=== PATIENT | male | born 1970 | race Caucasian/White ===

== ENCOUNTER 2021-01-19 09:32 | Emergency (ER) | payer SELFPAY ==
[~2021-01-19] VITALS: Ht 167.6 cm; Wt 103.0 kg
[2021-01-19 09:41] VITALS: BP 157/100
--- NOTE | 2021-01-19 10:18 | NUR ---
dr. gonzalez bedside evaluating pt
--- NOTE | 2021-01-19 10:42 | NUR ---
50 Y/O MALE C/O RIGHT RIB PAIN 12/30 DESCRIBES SHARP NON-RADIATING X3DAYS. PT STATES "HE WAS HAVING AN ALLERGIC REACTION TUESDAY AND KEPT SNEEZING WHEN HE HEARD A POP AND STARTED TO FEEL THE PAIN." PT STATES SOB WHEN TAKING DEEP BREATH, SPO2 96% ON RA. DENIES TRAUMA/INJURY, DENIES N/V, DENIES FEVER/CHILLS. PMH: [place], [place] (3YRS), 3 STENTS, HLD RX: INSULIN, ASA NKA
--- NOTE | 2021-01-19 10:42 | NUR ---
XRAY BEDSIDE WITH PT
[2021-01-19] MEDS ORDERED: ACET-8386 PO (11:02)
[2021-01-19] MEDS ORDERED: NAPR-1704 PO (11:02)
[2021-01-19 11:10] VITALS: BP 157/100
--- NOTE | 2021-01-19 11:10 | NUR ---
Patient discharged with v/s stable. Written and verbal after care instructions ABOUT CHEST WALL PAIN given and explained. Patient alert, oriented and verbalized understanding of instructions. Ambulatory with steady gait. All questions addressed prior to discharge. ID band removed. Patient advised to follow up with PMD. Rx of NAPROXEN AND HYDROCODONE/ACETAMINOPHEN given. Patient educated on indication of medication including possible reaction and side effects. Opportunity to ask questions provided and answered.
== END 2021-01-19 11:11 | disposition home or self-care (01) ==
LOC: MED 09:32
DX: R07.89 Other chest pain (principal); E11.9 Type 2 diabetes mellitus without complications; I11.9 Hypertensive heart disease without heart failure
CPT/HCPCS: 71045; 99283; Q0092

== ENCOUNTER 2023-06-16 17:24 | Inpatient (IN) | payer SELFPAY ==
[~2023-06-16] VITALS: Ht 167.6 cm; Wt 104.3 kg
[~2023-06-16 17:24] MED LIST: ACET-8905 PO; NAPR-1704 PO
[2023-06-16 17:34] VITALS: BP 153/80; PULSE 82; RESP 18; TEMP 97.7; O2SAT 98
[2023-06-16] MEDS ORDERED: ASPIRIN 81 MG TAB.CHEW PO ONE ×2 (17:45→18:35)
[2023-06-16] MEDS ORDERED: MORPHINE SULFATE 4 MG/ML SYR IVP ONE (18:00)
[2023-06-16] MEDS ORDERED: ONDANSETRON 4 MG/2 ML VIAL IVP ONE (18:00)
[2023-06-16 18:06] LABS: BASOPHILS # (AUTO) 0.1 K/uL (0.00-0.22); BASOPHILS % (AUTO) 0.7 % (0.0-2.0); EOSINOPHILS # (AUTO) 0.2 K/uL (0-0.4); EOSINOPHILS % (AUTO) 2.3 % (0.0-4.0); HEMATOCRIT 47.5 % (36-52); HEMOGLOBIN 16.9 g/dL (12.0-18.0); LYMPHOCYTES # (AUTO) 5.4 K/uL (2.0-11.5); MEAN CORPUSCULAR HEMOGLOBIN 31 pg (27-31); MEAN CORPUSCULAR HGB CONC 36 g/dL (33-37); MEAN CORPUSCULAR VOLUME 87.9 fL (80-94); MONOCYTES # (AUTO) 0.7 K/uL (0.8-1.0); MONOCYTES % (AUTO) 6.6 % (1.7-9.3); NEUTROPHILS % (AUTO) 38.4 % (42.2-75.2); PLATELET COUNT (AUTO) 221 K/uL (140-450); RED CELL DISTRIBUTION WIDTH 13.6 % (11.6-13.7); WHITE BLOOD COUNT (AUTO) 10.4 K/uL (4.8-10.8)
[2023-06-16 18:12] VITALS: O2SAT 99
[2023-06-16 18:23] LABS: ANION GAP 11.5 (8-16); CALCIUM 8.9 mg/dL (8.5-10.1); CARBON DIOXIDE 27.1 mmol/L (21-32); POTASSIUM 3.6 mmol/L (3.5-5.1)
[2023-06-16 18:26] LABS: INR 0.91 (0.8-1.2); PARTIAL THROMBOPLASTIN TIME 24.1 secs (22-35.6); PROTHROMBIN TIME 9.6 secs (10.8-13.4)
[2023-06-16 20:21] VITALS: O2SAT 99
[2023-06-16] MEDS ORDERED: ZOLPIDEM 5 MG TAB PO PRN (20:30)
[2023-06-16] MEDS ORDERED: LORazepam 1 MG TAB PO PRN (20:30)
[2023-06-16] MEDS ORDERED: NITROGLYCERIN 0.4 MG TAB SL PRN (20:30)
[2023-06-16] MEDS ORDERED: NACL 0.9% 1,000 ML IV SCH (20:30)
[2023-06-16] MEDS ORDERED: ATOR40TA PO (21:13)
[2023-06-16] MEDS ORDERED: METF-346 PO (21:13)
[2023-06-16] MEDS ORDERED: BENA10TA81 PO (21:13)
[2023-06-16] MEDS ORDERED: GLIP5TER PO (21:13)
[2023-06-16] MEDS ORDERED: INSU100S22 SUBQ (21:13)
[2023-06-16] MEDS ORDERED: METO25TA PO (21:13)
[2023-06-16] MEDS ORDERED: FENO145T PO (21:13)
[2023-06-16] MEDS ORDERED: GEMF600T5 PO (21:13)
[2023-06-16] MEDS ORDERED: ASPI-1822 PO (21:13)
[2023-06-16] MEDS ORDERED: ICOS1SGL PO (21:13)
[2023-06-16] MEDS ORDERED: CLOP75TA55 PO (21:13)
[2023-06-16 21:19] LABS: CHOL/HDL RATIO 8.6 (1-4.5); CHOLESTEROL 325 mg/dL (<200); HDL CHOLESTEROL 38 mg/dL (40-60)
[2023-06-16] MEDS: METOPROLOL 25 MG TAB PO SCH (21:26)
[2023-06-16 21:41] LABS: TRIGLYCERIDES 1758 mg/dL (30-150)
[2023-06-16 21:49] VITALS: PULSE 87; RESP 18; O2SAT 97
[2023-06-16] MEDS ORDERED: hydrALAZINE 20 MG/ML VIAL IVP PRN (23:15)
[2023-06-16] MEDS ORDERED: DEXTROSE 50% 50 ML SYR IVP PRN (23:35)
[2023-06-16] MEDS ORDERED: HEPARIN PER PHARMACY MC PRN (23:35)
[2023-06-16] MEDS: ONDANSETRON 4 MG/2 ML VIAL IVP PRN (23:53)
[2023-06-16] MEDS: MORPHINE SULFATE 2 MG/ML SYR IVP PRN (23:53)
[2023-06-17] VITALS (10 sets, daily range): BP systolic 117–144; BP diastolic 65–95; PULSE 76–106; RESP 18–20; TEMP 97.3–98.4; O2SAT 94–97
[2023-06-17] MEDS: hePARIN / DEXT 5% PREMIX 250 ML IV PRN ×4 (01:08→23:05)
[2023-06-17] MEDS: MORPHINE SULFATE 2 MG/ML SYR IVP PRN (05:55)
[2023-06-17] MEDS: ONDANSETRON 4 MG/2 ML VIAL IVP PRN (05:56)
[2023-06-17] MEDS: BLOOD GLUCOSE MONITORING 1 DEV DEV FS SCH ×4 (06:36→20:46)
[2023-06-17] MEDS: INSULIN LISPRO SLIDING SCALE 100 UNITS/ML VIAL SUBQ PRN ×4 (06:40→20:51)
[2023-06-17] MEDS: DOCUSATE SODIUM 100 MG GELCAP PO SCH (08:21)
[2023-06-17] MEDS: METOPROLOL 25 MG TAB PO SCH ×2 (08:22→20:47)
[2023-06-17] MEDS: ASPIRIN 81 MG TAB.CHEW PO SCH (08:22)
[2023-06-17] MEDS ORDERED: LOSARTAN 25 MG TAB PO SCH (09:00)
[2023-06-17] MEDS: ATORVASTATIN 20 MG TAB PO SCH (09:13)
[2023-06-17] MEDS: BENAZEPRIL 10 MG TAB PO SCH (09:13)
[2023-06-17] MEDS: gemfibroziL 600 MG TAB PO SCH ×2 (09:13→20:47)
[2023-06-18] VITALS: BP 117/80; PULSE 85; PULSE 86; RESP 20; TEMP 97.8; O2SAT 96
[2023-06-18] MEDS: hePARIN / DEXT 5% PREMIX 250 ML IV PRN ×4 (00:56→22:34)
[2023-06-18 04:00] VITALS: BP 108/71; PULSE 86; PULSE 87; RESP 18; TEMP 98.4; O2SAT 95
[2023-06-18] MEDS: BLOOD GLUCOSE MONITORING 1 DEV DEV FS SCH ×4 (06:30→20:22)
[2023-06-18] MEDS: INSULIN LISPRO SLIDING SCALE 100 UNITS/ML VIAL SUBQ PRN ×4 (06:32→20:30)
[2023-06-18 08:00] VITALS: BP 109/74; PULSE 100; PULSE 108; RESP 18; TEMP 98; O2SAT 94; O2SAT 97
[2023-06-18] MEDS: ASPIRIN 81 MG TAB.CHEW PO SCH (08:52)
[2023-06-18] MEDS: gemfibroziL 600 MG TAB PO SCH ×2 (08:52→20:22)
[2023-06-18] MEDS: BENAZEPRIL 10 MG TAB PO SCH (08:53)
[2023-06-18] MEDS: ATORVASTATIN 20 MG TAB PO SCH (08:53)
[2023-06-18] MEDS: DOCUSATE SODIUM 100 MG GELCAP PO SCH (08:53)
[2023-06-18] MEDS: METOPROLOL 25 MG TAB PO SCH ×2 (10:10→20:22)
[2023-06-18 12:00] VITALS: BP 100/66; PULSE 81; RESP 18; TEMP 97.5; O2SAT 95
[2023-06-18 16:00] VITALS: BP 104/62; PULSE 88; RESP 18; TEMP 97.9; O2SAT 97
[2023-06-18 18:25] LABS: APPEARANCE,URINE CLEAR (CLEAR); BILIRUBIN,URINE NEGATIVE (NEGATIVE); BLOOD, URINE NEGATIVE (NEGATIVE); COLOR,URINE YELLOW (YELLOW); LEUKOCYTE ESTERASE ,URINE NEGATIVE (NEGATIVE); NITRITE, URINE NEGATIVE (NEGATIVE); PROTEIN,URINE NEGATIVE (NEGATIVE); UGLUCOSE 2+ (NEGATIVE); UROBILINOGEN,URINE 0.2 EU/dL (0.2 - 1)
[2023-06-18 18:39] LABS: AMPHETAMINE, URINE NEGATIVE ng/ml (NEG <=1000); BACTERIA,URINE 1+ /HPF (None Seen); BARBITURATE, URINE NEGATIVE ng/ml (NEG <=200); BENZODIAZEPINE, URINE NEGATIVE ng/mL (NEG <=200); CANNABINOID, URINE NEGATIVE ng/mL (NEG <=50); COCAINE, URINE NEGATIVE ng/mL (NEG <=300); MUCUS,URINE 1+ /LPF (None Seen); OPIATE, URINE POSITIVE ng/mL (NEG <=2000); PHENCYCLIDINE SCREEN,URINE NEGATIVE ng/mL (NEG <=25); RBC,URINE 0-5 /HPF (0-5); SQUAMOUS EPITHELIAL CELL,UR 4-10 (MOD) /LPF (0-3 (FEW)); TRICHOMONAS,URINE None Seen /HPF (None Seen); WBC,URINE 0-5 /HPF (0-5); YEAST,URINE None Seen /HPF (None Seen)
[2023-06-18 20:00] VITALS: BP 114/77; PULSE 97; PULSE 99; RESP 18; RESP 20; TEMP 98.2; O2SAT 94; O2SAT 95
[2023-06-19] VITALS: BP 98/62; PULSE 78; PULSE 97; RESP 18; TEMP 97.6; O2SAT 94
[2023-06-19 04:00] VITALS: BP 109/77; PULSE 86; PULSE 88; RESP 18; TEMP 97.8; O2SAT 95
[2023-06-19] MEDS: hePARIN / DEXT 5% PREMIX 250 ML IV PRN ×2 (05:21→08:19)
[2023-06-19] MEDS: BLOOD GLUCOSE MONITORING 1 DEV DEV FS SCH ×4 (06:34→20:21)
[2023-06-19] MEDS: INSULIN LISPRO SLIDING SCALE 100 UNITS/ML VIAL SUBQ PRN ×4 (06:36→20:28)
[2023-06-19 08:00] VITALS: BP 113/80; PULSE 87; RESP 18; TEMP 96.9; O2SAT 94; O2SAT 96
[2023-06-19] MEDS: ASPIRIN 81 MG TAB.CHEW PO SCH (08:14)
[2023-06-19] MEDS: gemfibroziL 600 MG TAB PO SCH ×2 (08:14→20:21)
[2023-06-19] MEDS: ATORVASTATIN 20 MG TAB PO SCH (08:14)
[2023-06-19] MEDS: BENAZEPRIL 10 MG TAB PO SCH (08:15)
[2023-06-19] MEDS: DOCUSATE SODIUM 100 MG GELCAP PO SCH (08:15)
[2023-06-19] MEDS: METOPROLOL 25 MG TAB PO SCH ×2 (08:15→20:21)
[2023-06-19 12:00] VITALS: BP 94/63; PULSE 90; RESP 18; TEMP 97.3; O2SAT 97
[2023-06-19 16:00] VITALS: BP 102/69; PULSE 85; RESP 18; TEMP 97; O2SAT 97
[2023-06-19 20:00] VITALS: BP 113/72; PULSE 84; PULSE 94; PULSE 96; RESP 18; TEMP 98.9; O2SAT 96
[2023-06-20] VITALS: BP 107/74; PULSE 83; PULSE 90; RESP 18; TEMP 97.7; O2SAT 98
[2023-06-20] MEDS: hePARIN / DEXT 5% PREMIX 250 ML IV PRN ×2 (00:15→04:33)
[2023-06-20 04:00] VITALS: BP 107/69; PULSE 83; PULSE 86; RESP 18; TEMP 97; O2SAT 96
[2023-06-20] MEDS: BLOOD GLUCOSE MONITORING 1 DEV DEV FS SCH ×3 (06:34→16:35)
[2023-06-20] MEDS: INSULIN LISPRO SLIDING SCALE 100 UNITS/ML VIAL SUBQ PRN ×2 (06:37→12:21)
[2023-06-20 08:00] VITALS: BP 101/77; PULSE 80; PULSE 90; RESP 20; TEMP 98.2; O2SAT 95; O2SAT 98
[2023-06-20 08:46] LABS: BASOPHILS # (AUTO) 0.1 K/uL (0.00-0.22); BASOPHILS % (AUTO) 0.7 % (0.0-2.0); EOSINOPHILS # (AUTO) 0.3 K/uL (0-0.4); EOSINOPHILS % (AUTO) 3.2 % (0.0-4.0); HEMATOCRIT 47.1 % (36-52); HEMOGLOBIN 16.5 g/dL (12.0-18.0); LYMPHOCYTES # (AUTO) 4.3 K/uL (2.0-11.5); LYMPHOCYTES % (AUTO) 44.3 % (20.5-51.1); MEAN CORPUSCULAR HEMOGLOBIN 31 pg (27-31); MEAN CORPUSCULAR HGB CONC 35 g/dL (33-37); MEAN CORPUSCULAR VOLUME 87.7 fL (80-94); MONOCYTES # (AUTO) 0.8 K/uL (0.8-1.0); MONOCYTES % (AUTO) 8.3 % (1.7-9.3); NEUTROPHILS # (AUTO) 4.2 K/uL (1.8-7.7); NEUTROPHILS % (AUTO) 43.5 % (42.2-75.2); PLATELET COUNT (AUTO) 213 K/uL (140-450); RED BLOOD CELL COUNT(AUTO) 5.37 MIL/uL (4.20-6.10); RED CELL DISTRIBUTION WIDTH 13.5 % (11.6-13.7); WHITE BLOOD COUNT (AUTO) 9.7 K/uL (4.8-10.8)
[2023-06-20 08:49] LABS: ANION GAP 12.5 (8-16); CARBON DIOXIDE 24.4 mmol/L (21-32); CREATININE 0.9 mg/dL (0.6-1.3); POTASSIUM 3.9 mmol/L (3.5-5.1)
[2023-06-20] MEDS: DOCUSATE SODIUM 100 MG GELCAP PO SCH (08:54)
[2023-06-20] MEDS: gemfibroziL 600 MG TAB PO SCH (08:54)
[2023-06-20] MEDS: ATORVASTATIN 20 MG TAB PO SCH (08:54)
[2023-06-20] MEDS: BENAZEPRIL 10 MG TAB PO SCH (08:55)
[2023-06-20] MEDS: METOPROLOL 25 MG TAB PO SCH (08:55)
[2023-06-20] MEDS ORDERED: LOSARTAN 25 MG TAB PO SCH (09:00)
[2023-06-20] MEDS: ASPIRIN 81 MG TAB.CHEW PO SCH (09:00)
[2023-06-20 12:00] VITALS: BP 101/77; PULSE 80; PULSE 89; RESP 20; TEMP 98.2; O2SAT 96
== END 2023-06-20 17:20 | disposition home or self-care (01) | DRG 282 ==
LOC: MED 17:24 → MTU 20:28
PROVIDERS: ADMIT Student in an Organized Health Care Education/Training Program; ATTEND Student in an Organized Health Care Education/Training Program
DX: I21.09 ST elevation (STEMI) myocardial infarction involving other coronary artery of anterior wall (principal); I10 Essential (primary) hypertension; E11.9 Type 2 diabetes mellitus without complications; I25.118 Atherosclerotic heart disease of native coronary artery with other forms of angina pectoris; E78.00 Pure hypercholesterolemia, unspecified; E78.1 Pure hyperglyceridemia; Z79.899 Other long term (current) drug therapy; I25.2 Old myocardial infarction
CPT/HCPCS: 36415; 71045; 80048; 80305; 81001; 82948; 83036; 83721; 83880; 84484; 85025; 85049; 85610; 85730; 87081; 87086; 93005; 96374; 96375; 99285; J1644; J1815; J2270; J2405